=== PATIENT | male | born 1955 | race Caucasian/White ===

== ENCOUNTER 2025-04-14 21:33 | Emergency (ER) | payer MEDICARE, OTHER | END 2025-04-14 23:21 | disposition home or self-care (01) | LOC: JD.ED 21:33 | DX: T82.9XXA Unspecified complication of cardiac and vascular prosthetic device, implant and graft, initial encounter (principal); Y83.8 Other surgical procedures as the cause of abnormal reaction of the patient, or of later complication, without mention of misadventure at the time of the procedure | CPT/HCPCS: 12001; 12020; 99283 ==